=== PATIENT | male | born 1955 | race Caucasian/White ===

== ENCOUNTER 2020-02-14 16:25 | Emergency (ER) | payer OTHER ==
[~2020-02-14] VITALS: Ht 180.3 cm; Wt 117.9 kg
[~2020-02-14 16:25] MED LIST: LISINOPRIL-HCT1 EAC2 PO
--- OUTSIDE RECORDS SUMMARY | 2020-02-14 17:09 | XMS REPORT | Clinical Summary ---
Author Author Bharat [employer] Organization [facility] [employer] Address Unknown Phone Unavailable Care Team Providers Care Branch Lending Manager Name Role Phone Asked, No Pcp PCP Unavailable Allergies Comments Active Allergy Reactions Severity Noted Date No Known Drug Allergies 04/11/2016 Medications End Date Status Medication Sig Dispensed Refills Start Date Active ibuprofen (ADVIL) 800 MG TAKE 1 TABLET 0 05/27 tablet BY MOUTH 9 THREE TIMES A DAY WITH FOOD OR MILK FOR 10 DAYS Active cyclobenzaprine TAKE 1 TABLET 0 (FLEXERIL) 10 mg tablet BY MOUTH 9 THREE TIMES A DAY NEEDED FOR MUSCLE TIGHTNESS Active acetaminophen-codeine Take 1 tablet 0 05/27/20 1 (TYLENOL WITH CODEINE #3) by mouth 9 300-30 mg per tablet every 6 (six) hours as needed. Active amLODIPine (NORVASC) 5 mg Take 1 tablet 90 tablet 0 tablet (5 mg total) 0 by mouth daily. 09/07/2020 Active atorvastatin (LIPITOR) 80 Take 1 tablet 90 tablet 3 MG tablet (80 mg total) 0 by mouth daily. Active metoprolol succinate XL Take 1 tablet 90 tablet 3 (TOPROL XL) 200 mg 24 hr (200 mg 0 tablet total) by mouth daily. Active aspirin (ECOTRIN) 325 MG Take 1 tablet 90 tablet 3 enteric coated tablet (325 mg 0 total) by mouth daily. 04/07/2019 Discontinued amLODIPine (NORVASC) 2.5 Take 1 tablet 90 tablet 3 mg tablet (2.5 mg 9 total) by mouth daily. 07/25/2019 Discontinued (Reorder) metoprolol succinate XL Take 1 tablet 90 tablet 3 (TOPROL XL) 200 mg 24 hr (200 mg 9 tablet total) by mouth daily. 07/25/2019 Discontinued (Reorder) atorvastatin (LIPITOR) 80 Take 1 tablet 90 tablet 3 MG tablet (80 mg total) 9 by mouth daily. 06/09/2019 Discontinued pantoprazole (PROTONIX) Take 1 tablet 90 tablet 3 40 MG EC tablet (40 mg total) 9 by mouth daily. 09/08/2019 Discontinued (Reorder) aspirin (ECOTRIN) 325 MG Take 1 tablet 90 tablet 4 enteric coated tablet (325 mg 9 total) by mouth daily. 07/25/2019 Discontinued (Reorder) amLODIPine (NORVASC) 5 mg Take 1 tablet 90 tablet 3 tablet (5 mg total) 9 by mouth daily. 07/25/2019 Discontinued (Reorder) lisinopril (PRINIVIL) 10 Take 1 tablet 90 tablet 3 mg tablet (10 mg total) 9 by mouth daily. 09/08/2019 Discontinued (Reorder) atorvastatin (LIPITOR) 80 Take 1 tablet 90 tablet 0 MG tablet (80 mg total) 0 by mouth daily. 09/08/2019 Discontinued lisinopril (PRINIVIL) 10 Take 1 tablet 90 tablet 0 mg tablet (10 mg total) 0 by mouth daily. 09/08/2019 Discontinued (Reorder) metoprolol succinate XL Take 1 tablet 90 tablet 0 (TOPROL XL) 200 mg 24 hr (200 mg 0 tablet total) by mouth daily. Active Problems Problem Noted Date Coronary artery disease involving [place] coronary art jaspal of [place] heart 11/07/2017 without angina pectoris Chest pain 04/11/2016 Coronary arteriosclerosis 04/11/2016 Essential hypertension 04/11/2016 Hyperlipidemia 04/11/2016 Paroxysmal atrial fibrillation 04/11/2016 Pericardial effusion 04/11/2016 Pericarditis 04/11/2016 Encounters Care Team Description Date Type Specialty Ede Saavedra MD Coronary artery disease involving [place] coronary artery of [place] heart without angina pectoris (Primary Dx); Essential hypertension; Hypercholesterolemia; Cough 09/08/2019 Office Visit Cardiology 09/08/2019 Travel Breann Sung MA Med Refill 07/25/2019 Refill Cardiology Ede Saavedra MD Coronary artery disease involving [place] coronary artery of [place] heart without angina pectoris 06/09/2019 Lab Lab Ede Saavedra MD Coronary artery disease involving [place] coronary artery of [place] heart without angina pectoris (Primary Dx); History of coronary artery bypass graft; Essential hypertension; Hypercholesterolemia 06/09/2019 Office Visit Cardiology Ede Saavedra MD 04/14/2019 Orders Only Cardiology Ede Saavedra MD CAD in [place] artery (Primary Dx); History of coronary artery bypass graft; Hypercholesterolemia; Essential hypertension 04/07/2019 Office Visit Cardiology after 02/13/2019 Family History Medical History Relation Name Comments Cancer Brother "Malignant tumor of pharynx" Heart attack Father Heart attack Mother Relation Name Status Comments Brother Father Mother Social History Date Tobacco Use Types Packs/Day Years Used Former Smoker Smokeless Tobacco: Never Chew Used Drinks/Week oz/Week Comments Alcohol Use "occasional" Yes Sex Assigned at Date Recorded Not on file Industry Job Start Date Occupation Not on file Not on file Not on file Travel End Travel History Travel Start No recent travel history available. Last Filed Vital Signs Reading Time Taken Comments Vital Sign 157/89 09/08/2019 3:32 PM CDT Blood Pressure 66 09/08/2019 3:32 PM CDT Pulse - - Temperature - - Respiratory Rate - - Oxygen Saturation - - Inhaled Oxygen Concentration 127 kg (280 lb) 09/08/2019 3:32 PM CDT Weight 180.3 cm (5' 11") 09/08/2019 3:32 PM CDT Height 39.05 09/08/2019 3:32 PM CDT Body Mass Index Plan of Treatment Health Maintenance Due Date Last Done Comments COLONOSCOPY SCREENING 2007 SHINGLES VACCINES (#1) 2007 INFLUENZA VACCINE 03/02/2020 05/21/2019 Procedures Comments Procedure Name Priority Date/Time Associated Diag nosis ECG 12-LEAD Routine 09/08/2019 Coronary artery disease 2:31 PM CDT involving [place] coronary artery of [place] heart without angina pectoris COPY RECEIVED FROM: Routine 06/09/2019 2:08 PM PATIENT ADMITTING CLERK COPY(IES) SENT TO: Routine 06/09/2019 2:08 PM PATIENT ADMITTING CLERK HEMOGLOBIN A1C Routine 06/09/2019 Coronary artery disease 2:08 PM PATIENT ADMITTING CLERK involving [place] coronary artery of [place] heart without angina pectoris LIPID PANEL Routine 04/14/2019 8:53 AM CDT COPY RECEIVED FROM: Routine 04/14/2019 8:53 AM CDT CBC WITH PLATELET AND Routine 04/14/2019 DIFFERENTIAL 8:53 AM CDT COMPREHENSIVE METABOLIC Routine 04/14/2019 PANEL 8:53 AM CDT NON HDL CHOLESTEROL Routine 04/14/2019 (REFLEX [facility]) 8:53 AM CDT CHOL/HDLC RATIO (REFLEX Routine 04/14/2019 [facility]) 8:53 AM CDT LDL-CHOLESTEROL (REFLEX Routine 04/14/2019 [facility]) 8:53 AM CDT TRIGLYCERIDES Routine 04/14/2019 8:53 AM CDT HDL CHOLESTEROL Routine 04/14/2019 8:53 AM CDT CHOLESTEROL Routine 04/14/2019 8:53 AM CDT COPY(IES) SENT TO: Routine 04/14/2019 8:53 AM CDT ECG 12-LEAD Routine 04/07/2019 CAD in [place] a rtery 1:13 PM CDT after 02/13/2019 Results * ECG 12 lead (09/08/2019 2:31 PM CDT) Only the most recent of 2 results within the time period is included. Ventricular 60 [facility] rate Atrial rate 60 [facility] ID interval 192 [facility] QRSD interval 116 [facility] QT interval 464 [facility] QTC interval 464 [facility] P axis 1 -9 [facility] QRS axis 1 259 [facility] T wave axis 185 [facility] EKG impression Normal sinus rhythm-Right [facility] bundle branch block-Anterior infarct (cited on or before 28-APR-2015)-T wave abnormality, consider lateral ischemia-Abnormal ECG-In automated comparison with ECG of 07-APR-2019 13:13,-Questionable change in initial forces of Lateral leads-Nonspecific T wave abnormality now evident in Inferior leads-T wave inversion more evident in Lateral leads- Specimen Narrative Performed At This result has an attachment that is n ot available. Performing Organization Address City/State/[facility] Ph one Number [facility] MUSE [address] [facility] [place] [address] * COPY RECEIVED FROM: (06/09/2019 2:08 PM PATIENT ADMITTING CLERK) Only the most recent of 2 results within the time period is included. Copy received Comment: [facility] from: [facility] [address] [place] [address] Specimen Performing Organization Address City/State/[facility] Ph one Number [facility] * COPY(IES) SENT TO: (06/09/2019 2:08 PM PATIENT ADMITTING CLERK) Only the most recent of 2 results within the time period is included. Copies/mL Comment: [facility] [id number] [facility] [address] [place] [address] Specimen Performing Organization Address City/[facility] [place] one Number [facility] * Hemoglobin A1c (06/09/2019 2:08 PM PATIENT ADMITTING CLERK) Hemoglobin A1C 5.8 (H) <5.7 % of total Hgb [facility] Comment: DIAGNOSTICS For someone without known [place] diabetes, a hemoglobin A1c value between 5.7% and 6.4% is consistent with prediabetes and should be confirmed with a follow-up test. For someone with known diabetes, a value <7% indicates that their diabetes is well controlled. A1c targets should be individualized based on duration of diabetes, age, comorbid conditions, and other considerations. This assay result is consistent with an increased risk of diabetes. Currently, no consensus exists regarding use of hemoglobin A1c for diagnosis of diabetes for children. Specimen Blood Resulting Agency Comment Performing Organization Information: Site ID: [id number] Name: [facility] Address: [address] [place] [address] Director: Jay Pastor Performing Organization Address [facility] [place] Ph one Number [facility] [address] [phone] * NON HDL CHOLESTEROL (REFLEX [facility]) (04/14/2019 8:53 AM CDT) Non-HDL 87 <130 mg/dL (calc) [facility] cholesterol Comment: DIAGNOSTICS For patients with diabetes [place] plus 1 major ASCVD risk factor, treating to a non-HDL-C goal of <100 mg/dL (LDL-C of <70 mg/dL) is considered a therapeutic option. Specimen Narrative Performed At FASTING:YES [facility] FASTING: YES Resulting Agency Comment Performing Organization Information: Site ID: [id number] Name: [facility] Address: [address] [place] [phone] Director: Jay Pastor Performing Organization Address [facility] [place] Ph one Number [facility] [place] [address] [place] [address] 72 * CHOL/HDLC RATIO (REFLEX [facility]) (04/14/2019 8:53 AM CDT) Cholesterol/HDL 3.1 <5.0 (calc) [facility] ratio [facility] Specimen Narrative Performed At FASTING:YES [facility] FASTING: YES Resulting Agency Comment Performing Organization Information: Site ID: [facility] Name: [facility] Address: [address] [place] [phone] Director: Jay Pastor Performing Organization Address [facility] [place] Ph one Number [facility] [place] [phone] * LDL-CHOLESTEROL (REFLEX [facility]) (04/14/2019 8:53 AM CDT) LDL cholesterol 63 mg/dL (calc) [facility] calculated Comment: DIAGNOSTICS Reference range: <100 [place] Desirable range <100 mg/dL for primary prevention; <70 mg/dL for patients with CHD or diabetic patients with > or = 2 CHD risk factors. LDL-C is now calculated using the Trent-Abel calculation, which is a validated novel method providing better accuracy than the Friedewald equation in the estimation of LDL-C. Trent SS et al. BRYSON. 2013;310(19): 0681-4274 (http://education.Quolaw.com/faq/WUP471) Specimen Narrative Performed At FASTING:YES [facility] FASTING: YES Resulting Agency Comment Performing Organization Information: Site ID: [facility] Name: [facility] Address: [address] [place] [phone] Director: Jay Pastor Performing Organization Address City/State/Zipcode Ph one Number [facility] [place] [address] [place] [phone] * CBC with platelet and differential (04/14/2019 8:53 AM CDT) WBC 6.4 3.8 - 10.8 [facility] Thousand/uL DIAGNOSTICS [place] RBC 4.63 4.20 - 5.80 [facility] Million/uL [facility]AGNOSTICS [place] HGB 14.9 13.2 - 17.1 g/dL [facility] [place] HCT 42.0 38.5 - 50.0 % [facility] [place] MCV 90.7 80.0 - 100.0 fL [facility] [place] MCH 32.2 27.0 - 33.0 pg [facility] [place] MCHC 35.5 32.0 - 36.0 g/dL [facility] [place] RDW 13.1 11.0 - 15.0 % [facility] [employer] [place] Platelet count 135 (L) 140 - 400 [facility] Thousand/uL DIAGNOSTICS [place] MPV 12.2 7.5 - 12.5 fL [facility] [place] Neutrophils, 3,584 1,500 - 7,800 [facility] absolute cells/uL DIAGNOSTICS [place] Lymphocytes, 1,914 850 - 3,900 cells/uL [facility] absolute [facility] [place] Monocytes, 563 200 - 950 cells/uL [facility] [place] Eosinophils, 269 15 - 500 cells/uL [facility] absolute [facility] [place] Basophils, 70 0 - 200 cells/uL [facility] absolute [facility] [place] Neutrophils 56 % [facility] [place] Lymphocytes 29.9 % [facility] [place] Monocytes 8.8 % [facility] [place] Eosinophils 4.2 % [facility] [place] Basophils + RC 1.1 % [facility] [place] Specimen Narrative Performed At FASTING:YES [facility] FASTING: YES Resulting Agency Comment Performing Organization Information: Site ID: [id number] Name: [facility] Address: [address] [place] [phone] Director: Jay Pastor Performing Organization Address City/State/[facility] Ph one Number [facility] [address] [phone] * Triglycerides (04/14/2019 8:53 AM CDT) Triglycerides 159 (H) <150 mg/dL [facility] [place] Specimen Narrative Performed At FASTING:YES [facility] FASTING: YES Resulting Agency Comment Performing Organization Information: Site ID: [id number] Name: [facility] Address: [address] [place] [phone] Director: Jay Pastor Performing Organization Address [facility] one [facility] [employer] [place] [address] * HDL cholesterol (04/14/2019 8:53 AM CDT) HDL cholesterol 41 >40 mg/dL [facility] [place] Specimen Narrative Performed At FASTING:YES [facility] FASTING: YES Resulting Agency Comment Performing Organization Information: Site ID: [id number] Name: [facility] Address: [address] [place] [phone] Director: Jay Pastor Performing Organization Address [facility] [employer] [place] [address] * Cholesterol (04/14/2019 8:53 AM CDT) Cholesterol, 128 <200 mg/dL [facility] total [employer] [place] Specimen Narrative Performed At FASTING:YES [facility] FASTING: YES Resulting Agency Comment Performing Organization Information: Site ID: [id number] Name: [facility] Address: [address] [place] [phone] Director: Jay Pastor Performing Organization Address [facility] [employer] [place] [address] * Lipid panel (04/14/2019 8:53 AM CDT) Cholesterol, 128 <200 mg/dL [facility] total [employer] [place] HDL cholesterol 41 >40 mg/dL [facility] [place] Triglycerides 159 (H) <150 mg/dL [employer] [place] LDL cholesterol 63 mg/dL (calc) [facility] calculated Comment: DIAGNOSTICS Reference range: <100 [place] Desirable range <100 mg/dL for primary prevention; <70 mg/dL for patients with CHD or diabetic patients with > or = 2 CHD risk factors. LDL-C is now calculated using the Arelis calculation, which is a validated novel method providing better accuracy than the Friedewald equation in the estimation of LDL-C. Trent DIAZ et al. BRYSON. 2013;310(19): 4871-5520 (http://education.QuestDiagnos tics.com/faq/IJS168) Cholesterol/HDL 3.1 <5.0 (calc) [facility] ratio DIAGNOSTICS [place] Non-HDL 87 <130 mg/dL (calc) [facility] cholesterol Comment: DIAGNOSTICS For patients with diabetes [place] plus 1 major ASCVD risk factor, treating to a non-HDL-C goal of <100 mg/dL (LDL-C of <70 mg/dL) is considered a therapeutic option. Specimen Narrative Performed At FASTING:YES [facility] FASTING: YES Resulting Agency Comment Performing Organization Information: Site ID: [id number] Name: [facility] Address: [address] [place] [phone] Director: Jay Pastor Performing Organization Address City/State/Zipcode Ph one Number [employer] [address] [phone] * Comprehensive metabolic panel (04/14/2019 8:53 AM CDT) Glucose 122 (H) 65 - 99 mg/dL [facility] Comment: DIAGNOSTICS Fasting [place] reference interval For someone without known diabetes, a glucose value between 100 and 125 mg/dL is consistent with prediabetes and should be confirmed with a follow-up test. BUN 20 7 - 25 mg/dL [facility] [place] Creatinine 0.91 0.70 - 1.25 mg/dL [facility] Comment: DIAGNOSTICS For patients >49 years of age, [place] the reference limit for Creatinine is approximately 13% higher for people identified as -Welsh. EGFR Non-Afr. 90 > OR = 60 [facility] [place] mL/min/1.73m2 [facility] EGFR 104 > OR = 60 [facility] Welsh mL/min/1.73m2 [facility] BUN/creatinine NOT APPLICABLE 6 - 22 (calc) [facility] ratio [employer] [place] Sodium 142 135 - 146 mmol/L [facility] [place] Potassium 4.4 3.5 - 5.3 mmol/L [facility] [place] Chloride 104 98 - 110 mmol/L [facility] [place] CO2 27 20 - 32 mmol/L [facility] [place] Calcium 9.7 8.6 - 10.3 mg/dL [facility] [place] Protein 7.4 6.1 - 8.1 g/dL [facility] [place] Albumin, S 4.5 3.6 - 5.1 g/dL [facility] [place] Globulin, total 2.9 1.9 - 3.7 g/dL [facility] (calc) [employer] [place] Albumin/globuli 1.6 1.0 - 2.5 (calc) [facility] n ratio DIAGNOSTICS [place] Total bilirubin 2.0 (H) 0.2 - 1.2 mg/dL [facility] [place] Alkaline 44 40 - 115 U/L [facility] phosphatase DIAGNOSTICS [place] AST 41 (H) 10 - 35 U/L [facility] [place] ALT 59 (H) 9 - 46 U/L [facility] [place] Specimen Narrative Performed At FASTING:YES [facility] FASTING: YES Resulting Agency Comment Performing Organization Information: Site ID: [id number] Name: 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
--- OUTSIDE RECORDS SUMMARY | 2020-02-14 17:09 | XMS REPORT | Continuity of Care Document ---
Author Author [facility] t Organization [facility] Address [address] [place] [address] Phone Unavailable Care Team Providers Care Health Care Specialist Name Role Phone Asked, Pcp No PCP Unavailable Quentin REAL, Ede Attphys Breann Sung MA Attphys Unavailable Payers Payer Name Policy Type Policy Number Effective Date Expiration Date S juan [employer] CHOICE/CHOICE +/07/2017-PresentHMO/ PPO xxxxxxxxx 2017 00:00:00 Bharat Peoples Problems Condition Name Condition Details Condition Category Status Onset Date Resolution Date Last Treatment Date Treating Clinician Comments Source Coronary artery disease 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 angina pectoris Coronary artery disease 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 angina pectoris Disease Active 2017-11-07 00:00:00 Bharat Peoples Chest pain Chest pain Disease Active 2016-04-11 00:00:00 Bharat Peoples Coronary arteriosclerosis Coronary arteriosclerosis Disease Ac tive 2016-04-11 00:00:[address] Essential hypertension Essential hypertension Disease Active 2016-04-11 00:00:00 Bharat berry Hyperlipidemia Hyperlipidemia Disease Active 2016-04-11 00:00:00 Bharat Peoples Paroxysmal atrial fibrillation Paroxysmal atrial fibrillation Disea se Active 2016-04-11 00:00:00 Bharat Peoples Pericardial effusion Pericardial effusion Disease Active 00:00:00 Bharat Peoples Pericarditis Pericarditis Disease Active 2016-04-11 00:00:00 Bharat Peoples Allergies, Adverse Reactions, Alerts Allergy Name Allergy Type Status Severity Reaction(s) Onset Date Inacti ve Date Treating Clinician Comments Source No Known Allergies DA Active U 2018-08-22 00:00:00 [facility] Family History Family Member Diagnosis Comments Start Date Stop Date Source Natural brother Cancer Nicholson Arnulfo ethodist Natural father Heart attack Bharat Peoples Natural mother Heart attack Bharat Peoples Social History Social Habit Start Date Stop Date Quantity Comments Source History of tobacco use Chews Tobacco Bharat Peoples Sex Assigned At Leslie maida Shelton Alcohol intake 2019-09-08 00:00:00 2019-09-08 00:00:00 Current drinker of alcohol (finding) Bharat Peoples Alcohol Comment 2016-04-11 00:00:00 2016-04-11 00:00:00 "occasional" Bharat Peoples Smoking Status Start Date Stop Date Source Former smoker 2019-09-08 00:00:00 2019-09-08 00:00:00 Bharat Peoples Medications Ordered Medication Name Filled Medication Name Start Date Stop Da te Current Medication? Ordering Clinician Indication Dosage Frequency Signature (SIG) Comments Components Source metoprolol succinate XL (TOPROL XL) 200 mg 24 hr tablet 2019-09-08 00:00:00 Yes 200mg QD Take 1 tablet (200 mg total) by mouth lynn Peoples aspirin (ECOTRIN) 325 MG enteric coated tablet 2019-09-08 00:00: 00 Yes 325mg QD Take 1 tablet (325 mg total) by mouth daily. Bharat Peoples atorvastatin (LIPITOR) 80 MG tablet 2019-09-08 00:00:0 0 2020-09-07 23:59:00 No 80mg QD Take 1 tablet (80 mg total) by mouth sirena Peoples amLODIPine (NORVASC) 5 mg tablet 2019-07-25 00:00:00 Yes 5mg QD Take 1 tablet (5 mg total) by mouth daily. Melinda Peoples atorvastatin (LIPITOR) 80 MG tablet 2019-07-25 00:00:0 0 2019-09-08 00:00:00 No 80mg QD Take 1 tablet (80 mg total) by mouth sirena Peoples lisinopril (PRINIVIL) 10 mg tablet 2019-07-25 00:00:00 00:00:00 No 10mg QD Take 1 tablet (10 mg total) by mouth sirena Peoples metoprolol succinate XL (TOPROL XL) 200 mg 24 hr tablet 2019-07-25 00:00:00 2019-09-08 00:00:00 No 200mg QD Take 1 tablet (200 mg total) by mouth daily. Bharat Peoples lisinopril (PRINIVIL) 10 mg tablet 2019-06-09 00:00:00 00:00:00 No 10mg QD Take 1 tablet (10 mg total) by mouth sirena Peoples ibuprofen (ADVIL) 800 MG tablet 2019-05-27 00:00:00 Yes TAKE 1 TABLET BY MOUTH THREE TIMES A DAY WITH FOOD OR MILK FOR 10 DAYS Bharat Peoples cyclobenzaprine (FLEXERIL) 10 mg tablet 2019-05-27 00:00:00 Yes TAKE 1 TABLET BY MOUTH THREE TIMES A DAY NEEDED FOR MUSCLE TIGHTNESS Bharat Peoples acetaminophen-codeine (TYLENOL WITH CODEINE #3) 300-30 mg pe r tablet 2019-05-27 00:00:00 Yes 1{tbl} Q6H Take 1 tablet by mouth every 6 (six) hours as needed. Bharat Peoples amLODIPine (NORVASC) 5 mg tablet 2019-04-07 00:00:00 2019-07 00:00:00 No 5mg QD Take 1 tablet (5 mg total) by mouth daily. Bharat Peoples aspirin (ECOTRIN) 325 MG enteric coated tablet 2 00:00:00 2019-09-08 00:00:00 No 325mg QD Take 1 tablet (325 mg total) by mouth daily. Bharat Peoples metoprolol succinate XL (TOPROL XL) 200 mg 24 hr tablet 2018-09-17 00:00:00 2019-07-25 00:00:00 No 200mg QD Take 1 tablet (200 mg total) by mouth daily. Bharat Peoples atorvastatin (LIPITOR) 80 MG tablet 2018-09-17 00:00:0 0 2019-07-25 00:00:00 No 80mg QD Take 1 tablet (80 mg total) by mouth sirena Peoples pantoprazole (PROTONIX) 40 MG EC tablet 00:00:00 2019-06-09 00:00:00 No 40mg QD Take 1 tablet (40 mg total) by mouth daily. Bharat Peoples amLODIPine (NORVASC) 2.5 mg tablet 2018-09-17 00:00:00 201 03-11-07 00:00:00 No 2.5mg QD Take 1 tablet (2.5 mg total) by mouth lynn fantasma. Bharat Peoples Vital Signs Vital Name Observation Time Observation Value Comments Source Systolic blood pressure 2019-09-08 15:32:00 157 mm[Hg] Bharat Peoples Diastolic blood pressure 2019-09-08 15:32:00 89 mm[Hg] Bharat Peoples Heart rate 2019-09-08 15:32:00 66 /min Bharat Peoples Body height 2019-09-08 15:32:00 180.3 cm Bharat Peoples Body weight 2019-09-08 15:32:00 127.007 kg Bharat Peoples BMI 2019-09-08 15:32:00 39.05 kg/m2 Bharat Peoples Procedures Procedure Date / Time Performed Performing Clinician Sourniurka e ECG 12-LEAD 2019-09-08 14:31:20 Ede Saavedra HEMOGLOBIN A1C 2019-06-09 14:08:00 Ede Saavedra COPY(IES) SENT TO: 2019-06-09 14:08:00 Ede Saavedra ethodist COPY RECEIVED FROM: 2019-06-09 14:08:00 Ede Saavedra COPY(IES) SENT TO: 2019-04-14 08:53:00 Ede Saavedra ethodist HDL CHOLESTEROL 2019-04-14 08:53:00 Ede Saavedra TRIGLYCERIDES 2019-04-14 08:53:00 Ede Saavedra LDL-CHOLESTEROL (REFLEX QUEST) 2019-04-14 08:53:00 Gautam Saavedra NON HDL CHOLESTEROL (REFLEX QUEST) 2019-04-14 08:53:00 Ede Saavedra COMPREHENSIVE METABOLIC PANEL 2019-04-14 08:53:00 Barrington Saavedra CBC WITH PLATELET AND DIFFERENTIAL 2019-04-14 08:53:00 Ede Saavedra COPY RECEIVED FROM: 2019-04-14 08:53:00 Ede Saavedra LIPID PANEL 2019-04-14 08:53:00 Ede Saavedra odsabrina ECG 12-LEAD 2019-04-07 13:13:26 Ede Saavedra Plan of Care Planned Activity Planned Date Details Comments Source Future Scheduled Test 2020-03-02 00:00:00 INFLUENZA VACCINE [code = INFLUENZA VACCINE] Bharat Peoples Future Scheduled Test 2007 00:00:00 COLONOSCOPY SCREEN ING [code = COLONOSCOPY SCREENING] Bharat Peoples Future Scheduled Test 2007 00:00:00 SHINGLES VACCINES (#1) [code = SHINGLES VACCINES (#1)] Bharat Peoples Encounters Start Date/Time End Date/Time Encounter Type Admission Type Att[facility] Care Department Encounter ID Source 2019-09-08 00:00:00 2019-09-08 00:00:00 Outpatient GAUTAM SAAVEDRA [facility] [id number] Bharat Peoples Results Test Description Test Time Test Comments Results Result Comments Source ECG 12 lead 2019-09-08 16:25:34 Test Item Ventricular rate (test code = 253) 60 Atrial rate (test code = 255) 60 IA interval (test code = 266) 192 QRSD interval (test code = 260) 116 QT interval (test code = 264) 464 QTC interval (test code = 265) 464 P axis 1 (test code = 267) -9 QRS axis 1 (test code = 268) 259 T wave axis (test code = 270) 185 EKG impression (test code = 273) Normal sinus rhythm-R ight bundle branch block- Anterior infarct (cited on or before 28-APR-2015)-T wave abnormality, consider lateral ischemia-Abnormal ECG-In automated comparison with ECG of 07-APR-2019 13:13,-Questionable change in initial forces of Lateral leads-Nonspecific T wave abnormality now evident in Inferior leads-T wave inversion more evident in Lateral leads- Bharat PeoplesHemoglobin [id number] 04:18:00* Test Item Value Reference Range Interpretation Comments Hemoglobin A1C (test code = 4548-4) 5.8 <5.7 % of total Hg b H For someone without known diabetes, a hemoglobin A1c value between 5.7% and 6.4% is consistent withprediabetes and should be confirmed with a follow-up test. For someone with known diabetes, a value <7%indicates that their diabetes is well controlled. [id number] should be individualized based on duration ofdiabetes, age, comorbid conditions, and otherconsiderations. This assay result is consistent with an increased riskof diabetes. Currently, no consensus exists regarding use ofhemoglobin A1c for diagnosis of diabetes for children. CHRISTINA (test code = RAC) Performing Organization Info rmation: Site ID: RGA Name: [facility] Address: [address] [place] [phone] Director: Jay Pastor Lab Interpretation (test code = 97682-2) Abnormal [facility] MethodistCOPY(IES) SENT TO:2019-06-10 04:18:00Copies/mLComment: TARSHA MILIAN CARDIO [address] [facility] [address] [place] [address] [facility] MethodistCOPY RECEIVED FROM:2019-06-10 04:18:00Copy received from:Comment: TARSHA MILIAN CARDIO [address] [place] [address] [facility] [id number] 23:31:00* Test Item Value Reference Range Interpretation Comments Glucose (test code = 2345-7) 122 mg/dL 65-99 H Fasting reference interval For someone without known diabetes, a glucose valuebetween 100 and 125 mg/dL is consistent withprediabetes and should be confirmed with afollow-up test. BUN (test code = 3094-0) 20 mg/dL 7-25 Creatinine (test code = 2160-0) 0.91 mg/dL 0.7-1.25 For patients >49 years of age, the reference limitfor Creatinine is approximately 13% higher for peopleidentified as -[place]. EGFR Non-Afr. [place] (test code = 2775) 90 > OR = 60 mL /min/1.73m2 EGFR (test code = 98948-2) 104 > OR = 60 mL/min/1.73m2 BUN/creatinine ratio (test code = 3097-3) NOT APPLICABLE 6- 22 (anita c) Sodium (test code = 2951-2) 142 mmol/L 135-146 Potassium (test code = 2823-3) 4.4 mmol/L 3.5-5.3 Chloride (test code = 2074-0) 104 mmol/L 98-110 CO2 (test code = 2027-) 27 mmol/L 20-32 Calcium (test code = 36621-4) 9.7 mg/dL 8.6-10.3 Protein (test code = 2885-2) 7.4 g/dL 6.1-8.1 Albumin, S (test code = 1751-7) 4.5 g/dL 3.6-5.1 Globulin, total (test code = 90010-7) 2.9 1.9- 3.7 g/dL (c alc) Albumin/globulin ratio (test code = 1759-0) 1.6 1.0- 2.5 ( calc) Total bilirubin (test code = 1974-) 2.0 mg/dL 0.2-1.2 H Alkaline phosphatase (test code = 6768-6) 44 U/L 40-115 AST (test code = 1919-8) 41 U/L 10-35 H ALT (test code = 1742-6) 59 U/L 9-46 H DASIA (test code = DASIA) FASTING:YESFASTING: YES RAC (test code = RAC) Performing Organization Info rmation: Site ID: RGA Name: [facility] Address: [address] [place] [phone] Director: Jay Pastor Lab Interpretation (test code = 88593-0) Abnormal [facility] MethodistLipid [id number] 23:31:00* Test Item Value Reference Range Interpretation Comments Cholesterol, total (test code = 2092-3) 128 mg/dL <200 HDL cholesterol (test code = 2084-9) 41 mg/dL >40 Triglycerides (test code = 2571-8) 159 mg/dL <150 H LDL cholesterol calculated (test code = 74747-0) 63 mg/dL (calc) Reference range: <100 Desirable range <100 mg/dL for primary prevention; <70 mg/dL for patients with CHD or diabetic patients with > or = 2 CHD risk factors. LDL-C is now calculated using the Trent-Roman calculation, which is a validated novel method providing better accuracy than the Friedewald equation in the estimation of LDL-C. Trent SS et al. BRYSON. 2013;310(19): 2212-1325 (http:/ /education.AxioMx/faq/SRM009) Cholesterol/HDL ratio (test code = 9830-1) 3.1 <5.0 (calc) Non-HDL cholesterol (test code = 90656-0) 87 <130 mg/dL ( calc) For patients with diabetes plus 1 major ASCVD risk factor, treating to a non-HDL-C goal of <100 mg/dL (LDL-C of <70 mg/dL) is considered a therapeutic option. DASIA (test code = DASIA) FASTING:YESFASTING: YES RAC (test code = RAC) Performing Organization Info rmation: Site ID: RGA Name: [facility] Address: [address] [place] [phone] Director: Jay Pastor Lab Interpretation (test code = 60028-5) Abnormal [facility] MethodistCB with platelet and [id number] 23:31:00* Test Item Value Reference Range Interpretation Comments WBC (test code = 6690-2) 6.4 3.8- 10.8 Thousand/uL RBC (test code = 789-8) 4.63 4.20- 5.80 Million/uL HGB (test code = 718-7) 14.9 g/dL 13.2-17.1 HCT (test code = 4544-3) 42.0 % 38.5-50 MCV (test code = 787-2) 90.7 fL 80-100 MCH (test code = 785-6) 32.2 pg 27-33 MCHC (test code = 786-4) 35.5 g/dL 32-36 RDW (test code = 788-0) 13.1 % 11-15 Platelet count (test code = 777-3) 135 140- 400 Thousand/u L L MPV (test code = 776-5) 12.2 fL 7.5-12.5 Neutrophils, absolute (test code = 751-8) 3584 1,500 - 7,80 0 cells/uL Lymphocytes, absolute (test code = 731-0) 1914 850- 3,900 c ells/uL Monocytes, absolute (test code = 742-7) 563 200- 950 cells /uL Eosinophils, absolute (test code = 711-2) 269 15- 500 cell s/uL Basophils, absolute (test code = 704-7) 70 0- 200 cells/u L Neutrophils (test code = 770-8) 56 % Lymphocytes (test code = 736-9) 29.9 % Monocytes (test code = 5905-5) 8.8 % Eosinophils (test code = 713-8) 4.2 % Basophils + RC (test code = 706-2) 1.1 % DASIA (test code = DASIA) FASTING:YESFASTING: YES RAC (test code = RAC) Performing Organization Info rmation: Site ID: RGA Name: [facility] Address: [address] [place] [phone] Director: Jay Pastor Lab Interpretation (test code = 30058-5) Abnormal [facility] [id number] 23:30:00* Test Item Value Reference Range Interpretation Comments Cholesterol, total (test code = 2093-3) 128 mg/dL <200 DASIA (test code = DASIA) FASTING:YESFASTING: YES RAC (test code = RAC) Performing Organization Info rmation: Site ID: GODFREYA Name: [facility] Address: [address] [place] [phone] Director: Jay Pastor [facility] SheltonL [id number] 23:30:00* Test Item Value Reference Range Interpretation Comments HDL cholesterol (test code = 2085-9) 41 mg/dL >40 DASIA (test code = DASIA) FASTING:YESFASTING: YES RAC (test code = RAC) Performing Organization Info rmation: Site ID: RGA Name: [facility] Address: [address] [place] [phone] Director: Jay Pastor [facility] [id number] 23:30:00* Test Item Value Reference Range Interpretation Comments Triglycerides (test code = 2571-8) 159 mg/dL <150 H DASIA (test code = DASIA) FASTING:YESFASTING: YES RAC (test code = RAC) Performing Organization Info rmation: Site ID: RGA Name: [facility] Address: [address] [place] [address] Director: Jay Pastor Lab Interpretation (test code = 45347-6) Abnormal [facility] MethodistLDL-CHOLESTEROL (REFLEX QUEST)2019-04-14 23:30:00* Test Item Value Reference Range Interpretation Comments LDL cholesterol calculated (test code = 11831-0) 63 mg/dL (calc) Reference range: <100 Desirable range <100 mg/dL for primary prevention; <70 mg/dL for patients with CHD or diabetic patients with > or = 2 CHD risk factors. LDL-C is now calculated using the Arelis calculation, which is a validated novel method providing better accuracy than the Friedewald equation in the estimation of LDL-C. Trent SS et al. BRYSON. 2013;310(52): 3034-1196 (http:/ /education.AxioMx/faq/STS493) DASIA (test code = DASIA) FASTING:YESFASTING: YES RAC (test code = RAC) Performing Organization Info rmation: Site ID: RGA Name: [facility] Address: [address] [place] [address] Director: Jay Pastor [facility] MethodistCHOL/HDLC RATIO (REFLEX QUEST)2019-04-14 23:30:00* Test Item Value Reference Range Interpretation Comments Cholesterol/HDL ratio (test code = 9830-1) 3.1 <5.0 (calc) DASIA (test code = DASIA) FASTING:YESFASTING: YES RAC (test code = RAC) Performing Organization Info rmation: Site ID: RGA Name: [facility] Address: [address] [place] [address] Director: Jay Pastor [facility] AddyistNON HDL CHOLESTEROL (REFLEX QUEST)2019-04-14 23:30:00* Test Item Value Reference Range Interpretation Comments Non-HDL cholesterol (test code = 05889-7) 87 <130 mg/dL ( calc) For patients with diabetes plus 1 major ASCVD risk factor, treating to a non-HDL-C goal of <100 mg/dL (LDL-C of <70 mg/dL) is considered a therapeutic option. DASIA (test code = DASIA) FASTING:YESFASTING: YES RAC (test code = RAC) Performing Organization Info rmation: Site ID: RGA Name: [facility] Address: [address] [place] [address] Director: Jay Pastor [facility] MethodistSURGICAL [id number] 07:46:00 RUN DATE: 08/28/18 [place] *LIVE* PAGE 1 RUN TIME: 745 Specimen Inqui ry RUN USER: INTERFACE PATIENT: TOM CANADA ACCT #: [id number] LOC: RobDAC2 U #: [id number] AGE/SX: 63/M ROOM: [facility] RE08/22/18REG DR: Harmeet Cruz MD : 59 BED: 1 DIS: 08/25/18 STATUS: DIS IN TLOC: SPEC #: [id number] RECD: 08/26/18 STATUS: CECILLE REHasmukh #: [id number] MELY: 08/26/18 [facility] DR: Harmeet Cruz MD ENTERED: 08/27/18-1800 SP TYPE: SURG SPEC OTHR DR: Self R eferred Shameka Reno MD,Arron Jarrett,Lane Rojas DO Yo, In Nicole REALORDERED: GM LEVEL 4 CODES: R35204 - GALLBLADDER FOS COPIES TO: Self Referred Shameka Reno MD [address] [place] [address] Malachi holley,Arron Rojas MD [address] [place] [address] Harmeet Cohen MD [address] [place] [id number] Jarrett DO [address] [place] [address] Yo,Dayana Rivera MD [address] [facility] [address] [place] [address] PROCEDURES: GM LEVEL 4 (Incomplete) TISSUES: 1. GALLBLADDER FOSSA OF LIVER - Gallbladder CONTINUED ON NEXT PAGE RUN DATE: 08/28/18 [place] *LIVE* PAGE 2 RUN TIME: 46 Specimen I nquiry RUN USER: INTERFACE SPEC #: [id number] PATIENT: ANDRES CANADA #[id number] (Continued) FINAL DIAG NOSIS Gallbladder, cholecystectomy: Acute and chronic cholecystitis with cholelithiasis. GROSS AND MICROSCOPIC GROSS DESCRIPTION: Received in [facility] and labeled "Gallbladder" is a 8 x 4.1 cm gallbladder. The serosa is er ythematous with focal exudate. The wall thickness is 0.7 cm The mucosa is erythematous with focal necrosis, but is without abnormal masses. The lumen contains multiple stones up to 1.1 cm in diameter. 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 MICROSCOPIC EXAMINATION: The gallbladder muco sa is ulcerated with mucosal necrosis and associated acute inflammation, whic h extends into the wall and onto the serosa. POST-OP DIAGNOSIS Acute cholecystitis PRE-OP DIAGNOSIS Acute cholecystitis Signed SIGNATURE ON FILE Pacheco Reaves MD 08/28/18 0746 END OF REPORT COMPREHENSIVE METABOLIC [id number] 08:36:00* Test Item Value Reference Range Interpretation Comments SODIUM (test code = NA) 135 mEq/L 134-147 N POTASSIUM (test code = K) 3.7 mEq/L 3.4-5.0 N CHLORIDE (test code = CL) 104 mEq/L 100-108 N CARBON DIOXIDE (test code = CO2) 20 mEq/L 21-33 L ANION GAP (test code = GAP) 15 0-20 N GLUCOSE (test code = GLU) 105 mg/dL 70-110 N BLOOD UREA NITROGEN (test code = BUN) 15 mg/dL 7-18 GLOMERULAR FILTRATION RATE (test code = GFR) 85.8 80-90 N Units of measure = ml/min/1.73 m2 CREATININE (test code = CREAT) 0.9 mg/dL 0.6-1.3 N TOTAL PROTEIN (test code = PROT) 7.6 g/dL 6.4-8.2 N ALBUMIN (test code = ALB) 3.40 g/dL 3.4-5.0 N CALCIUM (test code = CA) 8.4 mg/dL 8.0-10.5 N BILIRUBIN TOTAL (test code = BILT) 4.40 mg/dL 0.0-1.0 H SGOT/AST (test code = AST) 55 IUnit/L 15-37 H SGPT/ALT (test code = ALT) 73 IUnit/L 15-65 H ALKALINE PHOSPHATASE TOTAL (test code = ALKP) 58 IUnit/L 20-125 N BILIRUBIN [id number] 08:36:00* Test Item Value Reference Range Interpretation Comments BILIRUBIN DIRECT (test code = BILD) 0.20 MG/DL 0.0-0.30 N COMPREHENSIVE METABOLIC [id number] 09:22:00* Test Item Value Reference Range Interpretation Comments SODIUM (test code = NA) 138 mEq/L 134-147 N POTASSIUM (test code = K) 3.6 mEq/L 3.4-5.0 N CHLORIDE (test code = CL) 103 mEq/L 100-108 N CARBON DIOXIDE (test code = CO2) 27 mEq/L 21-33 N ANION GAP (test code = GAP) 12 0-20 N GLUCOSE (test code = GLU) 98 mg/dL 70-110 N BLOOD UREA NITROGEN (test code = BUN) 11 mg/dL 7-18 N GLOMERULAR FILTRATION RATE (test code = GFR) 98.3 80-90 H Units of measure = ml/min/1.73 m2 CREATININE (test code = CREAT) 0.8 mg/dL 0.6-1.3 N TOTAL PROTEIN (test code = PROT) 8.1 g/dL 6.4-8.2 N ALBUMIN (test code = ALB) 3.90 g/dL 3.4-5.0 N CALCIUM (test code = CA) 8.8 mg/dL 8.0-10.5 N BILIRUBIN TOTAL (test code = BILT) 4.20 mg/dL 0.0-1.0 H SGOT/AST (test code = AST) 64 IUnit/L 15-37 H SGPT/ALT (test code = ALT) 83 IUnit/L 15-65 H ALKALINE PHOSPHATASE TOTAL (test code = ALKP) 56 IUnit/L 20-125 N - XR CHEST 1 [id number] 10:52:00 FAX: Harmeet Ordonez I [phone] [place]: St: ADM FAX: Lane Reyes DO [phone] FAX: Wilfredo Nuno MD [phone] Name: TOM CANADA [facility] : 1955 Age/S: 63/M [address] [place] [address] Unit #: [id number] Loc: G.[address] [address] Phys: Wilfredo Arenas MD Acct: [id number] Dis Date: Status: ADM IN ONE #: [phone] Exam Date: 08/23/2018 1037 FAX #: [phone] Reason: LAP EUNICE EXAMS: CPT CODE: [id number] XR CHEST 1 V 12732 One vi ew chest performed August 23, 2018 1026 hours. COMPARISON: None. CLINICAL HISTORY: Acute cholecystitis, laparoscopic cholecystecto my. DISCUSSION: Single one view chest is submitted. Lungs are cl ear. Cardiomediastinal silhouette is normal in size. Sternal wires are noted. Osseous structures are limited, but grossly normal. IM PRESSION: Normal one view chest x-ray. at 1052 Reported and signed b y: Ayana Barton M.D. CC: Harmeet Chen MD; Lane Jarrett DO; Wilfredo Arenas MD Technologist: Dinorah Mead RT(R) Trnscrd Date/Time/By: 08/23/2018 (4457) : By: DaoNMG Orig Print D/T: S: 08/23/2018 (0844) PAGE 1 Signed Report COMPREHENSIVE METABOLIC [id number] 08:26:00* Test Item Value Reference Range Interpretation Comments SODIUM (test code = NA) 139 mEq/L 134-147 N POTASSIUM (test code = K) 3.4 mEq/L 3.4-5.0 N CHLORIDE (test code = CL) 104 mEq/L 100-108 N CARBON DIOXIDE (test code = CO2) 27 mEq/L 21-33 N ANION GAP (test code = GAP) 11 0-20 N GLUCOSE (test code = GLU) 112 mg/dL 70-110 H BLOOD UREA NITROGEN (test code = BUN) 12 mg/dL 7-18 N GLOMERULAR FILTRATION RATE (test code = GFR) 85.8 80-90 N Units of measure = ml/min/1.73 m2 CREATININE (test code = CREAT) 0.9 mg/dL 0.6-1.3 N TOTAL PROTEIN (test code = PROT) 7.4 g/dL 6.4-8.2 N ALBUMIN (test code = ALB) 3.80 g/dL 3.4-5.0 N CALCIUM (test code = CA) 8.7 mg/dL 8.0-10.5 N BILIRUBIN TOTAL (test code = BILT) 3.40 mg/dL 0.0-1.0 H SGOT/AST (test code = AST) 58 IUnit/L 15-37 H SGPT/ALT (test code = ALT) 77 IUnit/L 15-65 H ALKALINE PHOSPHATASE TOTAL (test code = ALKP) 52 IUnit/L 20-125 N PROTHROMBIN [id number] 06:19:00* Test Item Value Reference Range Interpretation Comments PROTHROMBIN TIME PATIENT (test code = PTP) 12.7 SECONDS 9.3-12.9 N INTERNATIONAL NORMAL RATIO (test code = INR) 1.1 0.8-1.2 N TARGET INR BY INDICATION Indication INR1. Prophylaxis of venous thrombosis 2.0 - 3.0 (orthopedic surgery), Prophylaxis of venous thrombosis (other than high-risk surgery), Treatment of Deep Vein Thrombosis/Pulmonary Embolism, Prevention of systemic embolism - Tissue heart valves, Acute Myocardial Infarction (to prevent systemic embolism), Valvular heart disease, Atrial Fibrillation, Bileaflet mechanical valve in aortic position.2. Mechanical prosthetic valves (high risk), 2.5 - 3.5 Presence of Lupus Anticoagulant or Antiphospholipid Antibodies, Prevention of systemic embolism - Acute Myocardial Infarction (to prevent recurrent infarct). THROMBOPLASTIN TIME [id number] 06:19:00* Test Item Value Reference Range Interpretation Comments THROMBOPLASTIN TIME PARTIAL (test code = PTT) 30.7 Seconds 25.0-39. 5 N Therapeutic Range: 61.8-83.8 Sec Effective 07/30/2013 - MRI ABDOMEN W/O [id number] 14:07:00 FAX: lEijah Nails NP [phone] [place]: St: ADM FAX: Harmeet Ordonez I [phone] FAX: Lane Reyes DO [phone] Name: TOM CANADA [facility] : 1955 Age/S: 63/M [address] [place] [address] Unit #: [id number] Loc: G.06 [place] [address] Phys: Elijah Nails NP Acct: [id number] Dis Date: Status: ADM IN ONE #: [phone] Exam Date: 08/22/2018 1315 FAX #: [phone] Reason: EVAL FOR CHOLEDOCHOLITHIASIS EXAMS: CPT CODE: [id number] MR I ABDOMEN W/O CON 63765 PROCEDURE: MRI ABDOMEN WITHOUT CONTRAST (MRCP) INDICATION: Acute cholecystitis. Evaluate for choledocholithiasis. Right upper quadrant pain. COMPARISON: Current right upper quadrant ultrasound TECHNIQUE: T2 weighted three-dimensional imaging of the biliary tree was performed. S upplemental T2-weighted multiplanar sequences were obtained. FINDINGS: COMMON DUCT: Normal course and caliber. No intraluminal filli ng defects. Common duct diameter 5 mm. Please note that sensitivity for ampullary defects may be limited by this modality. INTRAHEPAT IC BRANCHES: Normal. GALLBLADDER: Moderately distended with diminu tive low signal intensity filling defects. Pericholecystic edema correspo nding to findings at ultrasound. PANCREATIC DUCT: Normal anita iber duct with dominant drainage at the level of ampulla. AB DOMINAL VISCERA: Examination not designed for survey of the abdominal visc era. The liver, pancreas, spleen, adrenal glands and kidneys maintain norm al T2 signal intensity. Additional comments: No free intraperitone al fluid. The visualized skeleton maintains normal marrow signal intensit y. IMPRESSION: 1. Cholelithiasis with pericholecystic edema compatible with acute cholecystitis. 2. Normal caliber co mmon duct. No evidence for choledocholithiasis. SL: [id number] PAGE 1 Signed Report (CONTINUED) FAX: Elijah Nails NP [phone] [place]: St: [facility] FAX: Harmeet Ordonez I [phone] FAX: James Reyes DO [phone] Name: TOM CANADA [facility] : 1955 Age/S: 63/M [address] [facility] [address] Unit #: [id number] Loc: G.M106 [place] [address] Phys: Elijah Nails NP Acct: [id number] Dis Date: Status: ADM IN PHONE #: [phone] Exam Date: 08/22/2018 1315 FAX #: [phone] Reason: EVAL FOR CHOLEDOCHOLITHIASIS EXAMS: CPT CODE: [id number] MRI ABDOMEN W/O CON [id number] < Continued> at 1407 Reported and signed by: Ricardo Izaguirre M.D. CC: Elijah Nails NP; Harmeet Chen MD; Lane Jarrett DO Technologist: RT Lindsey(R)(CT)(MR) Trnscrd Date/Time/By: 08/22/2018 (8613) : By: Henrry Orig Print D/T: S: 08/22/2018 (7659) PAGE 2 Signed Report URINALYSIS [id number] 08:17:00* Test Item Value Reference Range Interpretation Comments UA COLOR (test code = COLU) YELLOW YEL/STRAW UA APPEARANCE (test code = APPU) CLEAR CLEAR UA GLUCOSE DIPSTICK (test code = DGLUU) NEGATIVE NEGATIVE UA BILIRUBIN DIPSTICK (test code = BILU) NEGATIVE NEGATIVE UA KETONE DIPSTICK (test code = KETU) TRACE NEGATIVE A UA SPECIFIC GRAVITY (test code = SGU) 1.015 1.005-1.030 N UA BLOOD DIPSTICK (test code = BATSHEVA) NEGATIVE NEGATIVE UA PH DIPSTICK (test code = HETAL) 7.0 5.0-7.0 N UA PROTEIN DIPSTICK (test code = PROU) 1+ NEGATIVE A UA UROBILINIOGEN DIPSTICK (test code = URO) 2.0 mg/dL 0.2-1.0 A UA NITRITE DIPSTICK (test code = HARMAN) NEGATIVE NEGATIVE UA LEUKOCYTE ESTERASE DIPSTICK (test code = LEUU) NEGATIVE NEGA TIVE UA WBC (test code = WBCU) 0-3 WBC/HPF 0-3 UA RBC (test code = RBCU) 0-3 RBC/HPF 0-3 UA BACTERIA (test code = BACU) TRACE /HPF NONE SEEN UA SQUAMOUS CELLS (test code = SQU) 0-5 /HPF NONE SEEN UA MUCUS (test code = MUCU) 1+ /LPF NONE SEEN COMMENTS: Clean CatchCOMPREHENSIVE METABOLIC [id number] 07:37:00* Test Item Value Reference Range Interpretation Comments SODIUM (test code = NA) 135 mEq/L 134-147 N POTASSIUM (test code = K) 3.6 mEq/L 3.4-5.0 N CHLORIDE (test code = CL) 100 mEq/L 100-108 N CARBON DIOXIDE (test code = CO2) 26 mEq/L 21-33 N ANION GAP (test code = GAP) 13 0-20 N GLUCOSE (test code = GLU) 149 mg/dL 70-110 H BLOOD UREA NITROGEN (test code = BUN) 15 mg/dL 7-18 N GLOMERULAR FILTRATION RATE (test code = GFR) 76.0 80-90 L Units of measure = ml/min/1.73 m2 CREATININE (test code = CREAT) 1.0 mg/dL 0.6-1.3 N TOTAL PROTEIN (test code = PROT) 8.1 g/dL 6.4-8.2 N ALBUMIN (test code = ALB) 4.10 g/dL 3.4-5.0 N CALCIUM (test code = CA) 9.1 mg/dL 8.0-10.5 N BILIRUBIN TOTAL (test code = BILT) 2.60 mg/dL 0.0-1.0 H SGOT/AST (test code = AST) 58 IUnit/L 15-37 H SGPT/ALT (test code = ALT) 84 IUnit/L 15-65 H ALKALINE PHOSPHATASE TOTAL (test code = ALKP) 52 IUnit/L 20-125 N [id number] 07:37:00* Test Item Value Reference Range Interpretation Comments LIPASE (test code = LIP) 112 IUnit/L 73-393 N [id number] 07:37:00* Test Item Value Reference Range Interpretation Comments TROPONIN-I (test code = TROPI) < 0.015 ng/mL 0.000-0.045 N Negative: <= 0.045 Positive: >= 0.046 Correlation with serial results, other cardiac markers andclinical findings is necessary to determine the clinicalsignificance of this result. Results using different methodologies should not be comparedto one another as quantitative results may vary by method. CBC W/AUTO [id number] 07:28:00* Test Item Value Reference Range Interpretation Comments WHITE BLOOD CELL (test code = WBC) 8.85 x10 3/uL 4.5-11.0 N RED BLOOD CELL (test code = RBC) 4.91 x10 6/uL 4.00-5.60 N HEMOGLOBIN (test code = HGB) 15.2 g/dL 12.5-16.9 N HEMATOCRIT (test code = HCT) 43.9 % 37.5-50.7 N MEAN CELL VOLUME (test code = MCV) 89.4 fL 81.0-99.0 N MEAN CELL HGB (test code = MCH) 31.0 pg 27.0-33.0 N MEAN CELL HGB CONCETRATION (test code = MCHC) 34.6 g/dL 33.0-37. 0 N RED CELL DISTRIBUTION WIDTH CV (test code = RDW) 12.3 % 11.5- 14.5 N RED CELL DISTRIBUTION WIDTH SD (test code = RDW-SD) 40.2 fL 37 .0-54.0 N PLATELET COUNT (test code = PLT) 153 x10 3/uL 150-400 N MEAN PLATELET VOLUME (test code = MPV) 12.0 fL 7.0-9.0 H NEUTROPHIL % (test code = NT%) 71.5 % 56.0-77.0 N IMMATURE GRANULOCYTE % (test code = IG%) 1.1 % 0.0-2.0 N LYMPHOCYTE % (test code = LY%) 19.3 % 14.0-32.0 N MONOCYTE % (test code = MO%) 5.5 % 4.8-9.0 N EOSINOPHIL % (test code = EO%) 1.8 % 0.3-3.7 N BASOPHIL % (test code = BA%) 0.8 % 0.0-2.0 N NUCLEATED RBC % (test code = NRBC%) 0.0 % 0-0 N NEUTROPHIL # (test code = NT#) 6.32 x10 3/uL 2.0-7.6 N IMMATURE GRANULOCYTE # (test code = IG#) 0.10 x10 3/uL 0.00-0.03 H LYMPHOCYTE # (test code = LY#) 1.71 x10 3/uL 1.0-3.8 N MONOCYTE # (test code = MO#) 0.49 x10 3/uL 0.1-0.8 N EOSINOPHIL # (test code = EO#) 0.16 x10 3/uL 0.0-0.2 N BASOPHIL # (test code = BA#) 0.07 x10 3/uL 0.0-0.2 N NUCLEATED RBC # (test code = NRBC#) 0.00 x10 3/uL 0.0-0.1 N MANUAL DIFF REQUIRED (test code = MDIFF) NO - US ABDOMEN [id number] 07:04:00 [facility] [place] [facility] 1955 Age/S: 63 / M [address] [place] [address] Blvd Unit #: [id number] Loc: [place] [address] Phys: Sonali Hoskins MD Acct: [id number] Dis Date: Status: REG ER PHONE #: [phone] Exam Date: 08/22/2018649 FAX #: [phone] Reason: Abdominal Pain EXAMS: CPT CODE: [id number] US ABDOMEN LTD 81648 PROCEDURE: RIGHT UPPER QUADRANT ULTRASOUND INDICATION: Right upper quadrant pain COMPARISON: None TECHNIQUE: Sonographic evaluation of the right upper quadrant was performed with supplemental color and pulsed Doppler. FINDINGS: LIVER: There is increased echogenicity with throughout the liver with area of focal fatty sparing near the gallbladder fossa. GALLBLADDER: Gallstones and gallbladder sludge is noted. Gallbladder wall measures 4 mm. BILE DUCTS: The common duct measures 3 mm. PANCREAS: Mostly obscured by bowel gas RIGHT KIDNEY: The right kidney measures 15.0 cm in length. Normal renal contour and morphology with normal echogenicity. There is no hydronephrosis. Additional comments: None. IMPRESSION: 1. Gallstones with mild gallbladder wall thickening. Acute cholecystitis not excluded. 2. Gallbladder sludge. 3. No biliary dilatation. SL: [id number] at 0704 Reported and signed by: Kingston forde M.D. CC: Sonali Hoskins MD Techno logist: Niru Avalos RDMS(A)(OB) Trnscb Date/Time: 08/22/2018 (703) [id number] Orig Print D/T: S: 08/22/2018 (0708) Probe: PAGE 1 Signed R eport
[2020-02-14] MEDS ORDERED: IBUPROFEN 400 MG TAB PO NR (17:30)
--- NOTE | 2020-02-14 18:30 | Emergency Department Note ---
History of Present Illnes History of Present Illness Chief Complaint: COVID PUI History of Present Illness This is a 65 year old male Chief Complaint Comment 4 DAYS ONSET S/S COVID. FEVER. PT AAOX4. AMBULATORY. NON SMOKER. NO COVID TESTING. PT RECENTLY ON VACATION TO [place]. PT STATES WAS SICK DURING MEENU TOO. COUGHING, SOB, FEVER, WHITE MUCUS, BODY ACHES, HEADACHE, N/V/D/F. SEEN IN TRIAGE BY MD. PT STATES HE IS ALREADY ON ZPAK AND HAS 2 DAYS LEFT. Historian: Patient Arrival Mode: Car Sped Teacher Required: No Onset (how long ago): week(s) (1) Location: Chest Quality: SoB Radiation: Reports non-radiation Severity: moderate Onset quality: gradual Duration (how long): week(s) (1) Timing of current episode: constant Progression: worsening Chronicity: new Context: Reports recent illness Relieving factors: none Exacerbating factors: none Associated symptoms: Reports cough, Reports fever/chills, Reports headaches Treatments prior to arrival: none Past Medical/Family History Physician Review I have reviewed the patient's past medical and family history. Any updates have been documented here. Past Medical History Recent Fever: Yes Clinical Suspicion of Infectio: Yes New/Unexplained Change in Ment: No Past Medical History: Hypertension, CAD, Liver Disease, Hyperlipedemia Other Medical History: HUANG Past Surgical History: Cholecysctectomy, CABG Other Surgery: CYSTOSCOPY D/T COLLAPSED URETHRA LAC BEHIND RT KNEE Social History Physically hurt or threatened: No Review of Systems Review of Systems Constitutional: Reports no symptoms EENTM: Reports as per HPI, Reports nose congestion Cardiovascular: Reports as per HPI; Denies chest pain Respiratory: Reports as per HPI, Reports cough, Reports dyspnea Gastrointestinal: Reports no symptoms Genitourinary: Reports no symptoms Musculoskeletal: Reports no symptoms, Reports muscle pain Integumentary: Reports no symptoms Neurological: Reports no symptoms Psychological: Reports no symptoms Endocrine: Reports no symptoms Hematological/Lymphatic: Reports no symptoms Physical Exam Related Data Allergies: Coded Allergies: No Known Allergies (Unverified , 04/02/15) Triage Vital Signs Vital Signs Date Time Temp Pulse Resp B/P (MAP) Pulse Ox O2 Delivery O2 Flow Rate FiO2 02/14/20 17:00 102.8 74 24 146/88 98 Room Air Vital signs reviewed: Yes Physical Exam CONSTITUTIONAL Constitutional: Present well-developed, Present well-nourished HENT HENT: Present normocephalic, Present atraumatic, Present oropharynx clear/moist, Present nose normal HENT L/R: Present left ext ear normal, Present right ext ear normal EYES Eyes: Reports PERRL, Reports conjunctivae normal NECK Neck: Present ROM normal PULMONARY Pulmonary: Present effort normal, Present breath sounds normal CARDIOVASCULAR Cardiovascular: Present regular rhythm, Present heart sounds normal, Present capillary refill normal, Present normal rate GASTROINTESTINAL Abdominal: Present soft, Present nontender, Present bowel sounds normal GENITOURINARY Genitourinary: Present exam deferred SKIN Skin: Present warm, Present dry MUSCULOSKELETAL Musculoskeletal: Present ROM normal NEUROLOGICAL Neurological: Present alert, Present oriented x 3, Present no gross motor or sensory deficits PSYCHOLOGICAL Psychological: Present mood/affect normal, Present judgement normal Results Laboratory Laboratory Laboratory Tests Test 02/14/20 17:14 Procedures 12 Lead ECG Interpretation ECG Interpretation : Sped Teacher: Interpreted by ED physician Date: Feb 14, 2020 Prior ECG tracings: reviewed Rhythm: sinus rhythm Rate: normal BPM: 67 QRS axis: normal ST segment flattening: I, aVL Clinical Impression: non-specific ECG Assessment & Plan Medical Decision Making MDM 65-year-old male who presents to the emergency department for upper respiratory infection like symptoms. He states his symptoms and ongoing for about a week and was prescribed a Z-Eagle by a family friend. He is taking the Z-Eagle and states his nasal congestion is getting worse. He is concerned he has covid19. Examination shows an appropriately ill appearing male in no acute distress, vital signs stable, within normal limits. The signs of respiratory distress. His congestion is noted. EKG is well-appearing, chest x-ray is largely unremarkable. [place] virus swab sent. Informed patient that he has presumed coronavirus infection and to isolate at home for another week. Strict return precautions were given to the patient and his . Doubt emergent process at this time. I discussed results patient as well as expected disease time course and management. They will follow up with their primary care provider or return to the emergency department for new or worsening symptoms. Patient's appropriate for discharge. Part of this note was dictated with Frida and is subject to recognition errors. Reassessment Reassessment time: 18:55 Reassessment Well appearing, NAD Assessment & Plan Final Impression: (1) URI (upper respiratory infection) Depart Disposition: HOME, SELF-CARE Last Vital Signs Date Time Temp Pulse Resp B/P (MAP) Pulse Ox O2 Delivery O2 Flow Rate FiO2 02/14/20 17:00 102.8 74 24 146/88 98 Room Air Home Meds Reported Medications Lisinopril/Hydrochlorothiazide (LISINOPRIL-HCTZ 10-12.5 MG TAB) 1 Each Tablet, PO DAILY 04/02/15 Medications in the ED Ibuprofen 800 mg ONCE PO ; Start 02/14/20 at 17:30; Stop 02/14/20 at 18:59 VANDANA COSTA MD Feb 14, 2020 18:30
[2020-02-14] MEDS ORDERED: ACETAMINOPHEN 325 MG TAB PO ONE (18:45)
--- NOTE | 2020-02-14 19:40 | Diagnostic Imaging Report ---
EXAMINATION: CHEST SINGLE (PORTABLE) INDICATION: Shortness of breath. COMPARISON: Chest x-ray on 04/02/2015. FINDINGS: TUBES and LINES: None. LUNGS: Normal lung volumes. There are prominent interstitial lung markings throughout both lungs, particularly at the lung bases. PLEURA: No pleural effusion or pneumothorax. HEART AND MEDIASTINUM: The heart is enlarged. The mediastinal silhouette is otherwise within normal limits with atherosclerotic calcification of the thoracic aortic arch. BONES AND SOFT TISSUES: No acute osseous lesion. Median sternotomy wires in place. Soft tissues are unremarkable. UPPER ABDOMEN: No free air under the diaphragm. IMPRESSION: Cardiomegaly with prominent interstitial lung markings which likely represents interstitial pulmonary edema with superimposed bibasilar atelectasis. Signed by: Roel Carter MD on 02/14/2020 7:37 PM
[2020-02-14 19:58] VITALS: BP 158/72
== END 2020-02-14 20:03 | disposition home or self-care (01) ==
LOC: ER 17:06
DX: J06.9 Acute upper respiratory infection, unspecified (principal); R50.9 Fever, unspecified; I10 Essential (primary) hypertension; E78.5 Hyperlipidemia, unspecified; K75.81 Nonalcoholic steatohepatitis (NASH); I25.10 Atherosclerotic heart disease of native coronary artery without angina pectoris; Z95.1 Presence of aortocoronary bypass graft
CPT/HCPCS: 71045; 93005; 99284; U0002